=== PATIENT | male | born 1985 | race Hispanic/Latino ===

== ENCOUNTER 2018-10-12 17:11 | Emergency (ER) | payer OTHER, SELFPAY ==
[~2018-10-12 17:11] MED LIST: ISOVUE-370 76%-LOCM 1 ML ONE
[2018-10-12 17:42] LABS: #Lymphocytes 1.2 thou/uL (1.20-3.40); #Monocytes 0.7 thou/uL (0.11-0.59); #Neutrophils 8.1 thou/uL (1.40-6.50); %Basophils 0.5 % (0.0-1.0); %Eosinophils 0.4 % (0.0-10.0); %Lymphocytes 11.6 % (21.0-51.0); %Monocytes 7.2 % (0.0-10.0); %Neutrophils 80.3 % (42.0-75.0); Hemoglobin 16.3 g/dL (14.0-18.0); Mean Corpuscular HGB CONC 33.6 g/dL (32.0-36.0); Mean Corpuscular Volume 83.5 fL (78.0-98.0); Mean Platelet Volume 7.1 fL (7.4-10.4); Platelet Count 296 thou/uL (130-400); RBC Distribution Width 12.3 % (11.5-14.5); White Blood Cell (WBC) Count 10.1 thou/uL (4.8-10.8)
[2018-10-12] MEDS ORDERED: Ondansetron PF 4 MG/2 ML Vial ONE (17:48)
[2018-10-12 18:06] LABS: ALT (SGPT) 17 U/L (8-55); AST (SGOT) 12 U/L (5-34); Albumin 4.4 g/dL (3.5-5.0); Alkaline Phosphatase 64 U/L (40-150); Anion Gap 12 mmol/L (10-20); BUN (Urea Nitrogen) 12 mg/dL (8.9-20.6); Bilirubin, Total 0.9 mg/dL (0.2-1.2); CK (CPK) 75 U/L (30-200); Calc. Creatinine Clearance 0 mL/min (70-130); Calcium 9.2 mg/dL (7.8-10.44); Carbon Dioxide 21 mmol/L (22-29); Chloride 104 mmol/L (98-107); Estimated GFR-MDRD 88; Globulin 2.6 g/dL (2.4-3.5); Glucose 98 mg/dL (70-105); Lipase 21 U/L (8-78); Potassium 4.2 mmol/L (3.5-5.1); Sodium 133 mmol/L (136-145)
[2018-10-12 18:35] LABS: Bilirubin Negative (Negative); Blood, Urine Negative (Negative); Clarity CLEAR (Clear); Glucose, Urine (Dipstick) Negative (Negative); Leukocyte Negative (Negative); Nitrite Negative (Negative); Protein, Urine (Dipstick) Negative (Neg-Trace); Specific Gravity, Urine 1.035 (1.002-1.036); Urobilinogen 0.2 mg/dL (0.2-1.0)
--- NOTE | 2018-10-12 19:02 | CT ---
CT ABDOMEN AND PELVIS WITH CONTRAST: HISTORY: Nausea, vomiting, diarrhea, and lower abdominal pain. FINDINGS: ABDOMEN: The lung bases are clear of infiltrates. The liver and spleen show no focal abnormalities. There is suggestion of some fatty change to the li angelia. The pancreas and gallbladder regions are unremarkable. The right and left adrenal glands and the right and left kidneys are normal in size. There is no sig nificant periaortic or mesenteric adenopathy. The colon is decompressed. PELVIS: The appendix is normal. There is no evidence of adenopathy, mass, or free fluid. Review of osseous structures show no significant findings. IMPRESSION: No acute findings of the abdomen or pelvis. POS: WILLIE
== END 2018-10-12 19:23 | disposition home or self-care (01) ==
LOC: ERS 17:11
DX: R11.2 Nausea with vomiting, unspecified (principal); R19.7 Diarrhea, unspecified; R10.30 Lower abdominal pain, unspecified
CPT/HCPCS: 74177; 80053; 81003; 82550; 83690; 85025; 96361; 96374; J2405; Q9966